=== PATIENT | female | born 1970 | race Caucasian/White ===

== ENCOUNTER 2017-04-12 17:36 | Emergency (ER) | payer OTHER ==
[~2017-04-12] VITALS: Ht 162.6 cm; Wt 59.0 kg
[~2017-04-12 17:36] MED LIST: BUSP30TA PO; LITH300T PO; LURA40 PO; QUET1TAB10 PO; SYMB160A INH; VENL75TA PO; VENL75XR PO; VENTAER INH
[2017-04-12 17:38] VITALS: BP 149/95; PULSE 86; RESP 20; TEMP 97.7; O2SAT 100
[2017-04-12 18:12] LABS: BACTERIA, URINE RARE /hpf; BLOOD, URINE NEG (NEG); COMMENT (UR) CULTURE INDICATED; CULTURE IF INDICATED CULTURE INDICATED; GLUCOSE,URINE NEG (NEG); KETONE, URINE NEG (NEG); NITRITE,URINE NEG (NEG); PH, URINE 5.5 (5.0-8.5); URINE COLOR LIGHT-YELLOW (YELLW/STRAW)
[2017-04-12] MEDS ORDERED: MACR100C2 PO (18:30)
--- NOTE | 2017-04-12 18:30 | PD ---
HPI . Wants refill on Prozac, Wellbutrin and Chantix also has a urinary tract infection Chief Complaint: Medication Refill Request Time Seen by Provider: 18:24 Travel History International Travel<30 days: No Contact w/Intl Traveler<30days: No Traveled to known affect area: No History of Present Illness HPI 38-year-old female here with complaints of urinary tract infection. Urine was done in triage and patient does appear to have one. She tells me she has had them in the past. She is also requesting a refill on Prozac, Wellbutrin and Chantix. She tells me that she recently relocated to [place] and is unable to find a primary care provider. She denies any suicidal or homicidal ideation. She has no other complaints. PFSH Past Medical History COPD: Yes Seizures: Yes ?: Not Tubal Ligation: Yes Past Surgical History Appendectomy: Yes Section: Yes Social History Alcohol Use: Yes Tobacco Use: Yes Substance Use: Yes (positive tox) Allergies-Medications (Allergen,Severity, Reaction): Coded Allergies: cefaclor (Unverified Allergy, Severe, Swelling, 04/12/17) diphenhydramine (Unverified Allergy, Severe, Swelling, 04/12/17) Reported Meds & Prescriptions Reported Meds & Active Scripts Active Macrobid (Nitrofurantoin Monohydrate Macrocrystals) 100 Mg Capsule 100 Mg PO BID 7 Days Effexor XR 24 HR (Venlafaxine HCl) 75 Mg Cap 75 Mg PO DAILY Quetiapine (Quetiapine Fumarate) 300 Mg Tab 300 Mg PO HS Latuda (Lurasidone) 40 Mg Tab 40 Mg PO DAILY Reported Buspirone (Buspirone HCl) 30 Mg Tab 30 Mg PO HS [place] Carbonate ER ([place] Carbonate) 300 Mg Tab 300 Mg PO BID Symbicort Inh (Budesonide/Formoterol Fumarate) 160-4.5 Mcg/Act Aero 2 Puff INH Q12HR Ventolin Hfa 18 GM Inh (Albuterol Sulfate) 90 Mcg/Act Aer 2 Puff INH Q4-6H PRN Effexor (Venlafaxine HCl) 75 Mg Tab 75 Mg PO DAILY Review of Systems General / Constitutional: No: Fever Eyes: No: Visual changes HENT: No: Headaches Cardiovascular: No: Chest Pain or Discomfort Respiratory: No: Shortness of Breath Gastrointestinal: No: Abdominal Pain Genitourinary: Positive: Urgency, Frequency, No: Dysuria Musculoskeletal: No: Pain Skin: No Rash Neurologic: No: Weakness Psychiatric: No: Depression Endocrine: No: Polydipsia Hematologic/Lymphatic: No: Easy Bruising Physical Exam Narrative GENERAL: AAO x 3, no acute distress, Well-nourished, well-developed patient. SKIN: Warm and dry. No visible rashes or bruising. HEAD: Normocephalic and atraumatic. EYES: No scleral icterus. No injection or drainage. ENT: No nasal drainage noted. Mucous membranes pink. Airway patent. NECK: Supple, trachea midline. No JVD. CARDIOVASCULAR: Regular rate and rhythm without murmurs, gallops, or rubs. RESPIRATORY: Breath sounds equal bilaterally. No accessory muscle use. No rhonchi or rales. GASTROINTESTINAL: Abdomen soft, non-tender, nondistended. EXTREMITIES: No cyanosis or edema. BACK: No obvious deformity. No CVA tenderness. NEURO: CN II-12 intact PSYCH: AAO x 3, normal affect. Data Data Last Documented VS Vital Signs Date Time Temp Pulse Resp B/P (MAP) Pulse Ox O2 Delivery O2 Flow Rate FiO2 04/12/17 17:38 97.7 86 20 149/95 (113) 100 Room Air Orders Orders Urinalysis - C+S If Indicated (04/12/17 17:47) Urine Culture (04/12/17 17:45) Labs Laboratory Tests Test 04/12/17 17:45 Urine Color LIGHT-YELLOW Urine Turbidity CLEAR Urine pH 5.5 Urine Specific [place] 1.011 Urine Protein NEG mg/dL Urine Glucose (UA) NEG mg/dL Urine Ketones NEG mg/dL Urine Occult Blood NEG Urine Nitrite NEG Urine Bilirubin NEG Urine Urobilinogen LESS THAN 2.0 MG/DL Urine Leukocyte Esterase LARGE Urine RBC 2 /hpf Urine WBC 84 /hpf Urine Bacteria RARE /hpf Microscopic Urinalysis Comment CULTURE INDICATED MDM Medical Decision Making Medical Screen Exam Complete: Yes Emergency Medical Condition: Yes Medical Record Reviewed: Yes Differential Diagnosis UTI, medication refill, bipolar disorder Narrative Course 46 yr old female here with c/o UTI. Laboratory Tests Test 04/12/17 17:45 Urine Color LIGHT-YELLOW Urine Turbidity CLEAR Urine pH 5.5 Urine Specific [place] 1.011 Urine Protein NEG mg/dL Urine Glucose (UA) NEG mg/dL Urine Ketones NEG mg/dL Urine Occult Blood NEG Urine Nitrite NEG Urine Bilirubin NEG Urine Urobilinogen LESS THAN 2.0 MG/DL Urine Leukocyte Esterase LARGE Urine RBC 2 /hpf Urine WBC 84 /hpf Urine Bacteria RARE /hpf Microscopic Urinalysis Comment CULTURE INDICATED I will treat her with macrobid for this infection. I advised her that I cannot refill her rx for her psych meds and recommend f/u with [facility]. We have provided her with flyers for this. Patient verbalized understanding of instructions, questions were answered, and thanked me for their care. I advised them if their condition worsens, please return to the nearest emergency room for further care. Diagnosis Primary Impression: Urinary tract infection Qualified Codes: N30.00 - Acute cystitis without hematuria Patient Instructions: General Instructions Additional Instructions: Please return to emergency department if your symptoms return or worsen. Follow up with your primary care provider. Take medications as prescribed. Scripts Nitrofurantoin Monohydrate Macrocrystals (Macrobid) 100 Mg Capsule 100 MG PO BID for Infection for 7 Days, #14 CAP 0 Refills Prov: Paulie Iglesias MD 04/12/17 Disposition: 01 DISCHARGE HOME Condition: Stable Bianca Jose Apr 12, 2017 18:30
== END 2017-04-12 18:39 | disposition home or self-care (01) ==
LOC: EDTENT 17:36
DX: N30.00 Acute cystitis without hematuria (principal); B96.1 Klebsiella pneumoniae [K. pneumoniae] as the cause of diseases classified elsewhere; Z72.0 Tobacco use
CPT/HCPCS: 81001; 87077; 87086; 87186; 99283